=== PATIENT | female | born 1985 | race Caucasian/White ===

== ENCOUNTER 2017-01-10 18:09 | Emergency (ER) | payer SELFPAY ==
[~2017-01-10] VITALS: Ht 167.6 cm; Wt 70.0 kg
[2017-01-10 18:13] VITALS: BP 98/61
== END 2017-01-10 19:23 | disposition left against medical advice (07) ==
LOC: ER 18:17
DX: Z53.21 Procedure and treatment not carried out due to patient leaving prior to being seen by health care provider (principal)

== ENCOUNTER 2017-05-02 03:39 | Emergency (ER) | payer SELFPAY | END 2017-05-02 03:48 | disposition left against medical advice (07) | LOC: ER 03:43 | DX: Z53.21 Procedure and treatment not carried out due to patient leaving prior to being seen by health care provider (principal) ==

== ENCOUNTER 2017-10-31 12:48 | Emergency (ER) | payer MEDICAID ==
[~2017-10-31] VITALS: Ht 165.1 cm; Wt 75.0 kg
[2017-10-31 13:28] LABS: BASOPHILS % 0.6 % (0.0-2.0); EOSINOPHILS % 0.8 % (0.0-5.0); HEMATOCRIT. 33.6 % (36.0-48.0); HEMOGLOBIN. 11.8 g/dL (12.0-16.0); LYMPHOCYTES % 21.5 % (20.0-50.0); MONOCYTES % 4.8 % (2.0-8.0); NEUTROPHILS % 72.3 % (40.0-76.0); PLATELET 256 x1000/uL (130-400); RED BLOOD CELL COUNT 3.81 mill/uL (4.2-5.4); RED CELL DISTRIBUTION WIDTH 14.1 % (11.6-14.6)
[2017-10-31 13:35] LABS: CHLORIDE 108 mEq/L (98-107)
[2017-10-31 13:45] LABS: B-HCG QUANTITATIVE 949 mIU/mL (<3)
[2017-10-31 16:38] VITALS: BP 99/59
== END 2017-10-31 17:05 | disposition home or self-care (01) ==
LOC: ER 13:12
DX: O20.0 Threatened abortion (principal); I10 Essential (primary) hypertension; Z3A.15 15 weeks gestation of pregnancy; Z59.0 Homelessness
CPT/HCPCS: 36415; 76805; 80053; 84702; 85025; 86850; 86900; 99285

== ENCOUNTER 2017-11-01 07:38 | Emergency (ER) | payer MEDICAID ==
[~2017-11-01] VITALS: Ht 157.5 cm; Wt 65.0 kg
[2017-11-01] MEDS ORDERED: SODIUM CHLORIDE 0.9% 1,000 ML IV ONE (08:00)
[2017-11-01] MEDS ORDERED: ONDANSETRON HCL 4MG/2ML VIAL IV ONE (08:00)
[2017-11-01] MEDS ORDERED: MORPHINE SULFATE 4 MG/ML CPJ (NOT FOR IM USE) IV ONE (08:00)
[2017-11-01 08:27] LABS: CHLORIDE 108 mEq/L (98-107)
[2017-11-01 08:29] LABS: PARTIAL THROMBOPLASTIN TIME 26.9 sec (23.4-31.0); PROTHROMBIN TIME 10.2 sec (9.4-11.6)
[2017-11-01 08:31] LABS: BASOPHILS % 0.2 % (0.0-2.0); EOSINOPHILS % 1.2 % (0.0-5.0); HEMATOCRIT. 36.2 % (36.0-48.0); HEMOGLOBIN. 12.3 g/dL (12.0-16.0); LYMPHOCYTES % 17.8 % (20.0-50.0); MEAN CORPUSCULAR HEMOGLOBIN 30.4 pg (28.0-32.0); MEAN CORPUSCULAR VOLUME 89.5 fL (81.0-99.0); MEAN PLATELET VOLUME 8.1 fl (7.4-10.4); MONOCYTES % 3.2 % (2.0-8.0); NEUTROPHILS % 77.6 % (40.0-76.0); PLATELET 275 x1000/uL (130-400); RED BLOOD CELL COUNT 4.05 mill/uL (4.2-5.4); RED CELL DISTRIBUTION WIDTH 14.2 % (11.6-14.6)
[2017-11-01 08:38] LABS: B-HCG QUANTITATIVE 770 mIU/mL (<3)
[2017-11-01] MEDS ORDERED: MEDROXYPROGESTERONE ACETATE 150MG/ML VIAL IM SCH (09:15)
[2017-11-01] MEDS ORDERED: MISOPROSTOL 200MCG TABLET PO ONE (09:15)
[2017-11-01 11:34] VITALS: BP 103/91
== END 2017-11-01 12:05 | disposition home or self-care (01) ==
LOC: ER 07:52
DX: O03.9 Complete or unspecified spontaneous abortion without complication (principal); O99.332 Smoking (tobacco) complicating pregnancy, second trimester; Z3A.15 15 weeks gestation of pregnancy
CPT/HCPCS: 36415; 80053; 84702; 85025; 85610; 85730; 86850; 86900; 86901; 88305; 96361; 96372; 96374; 96375; 99285; J1050; J2270; J2405; J7030; Z7610

== ENCOUNTER 2018-09-30 11:59 | Emergency (ER) | payer SELFPAY ==
[~2018-09-30] VITALS: Ht 162.6 cm; Wt 60.0 kg
[2018-09-30] MEDS ORDERED: NALOXONE HCL 1 MG/ML 2ML VIAL ONE (12:31)
[2018-09-30 12:34] LABS: CHLORIDE 106 mEq/L (98-107)
[2018-09-30 12:36] LABS: BASOPHILS % 0.2 % (0.0-2.0); HEMATOCRIT. 39.6 % (36.0-48.0); HEMOGLOBIN. 13.5 g/dL (12.0-16.0); MEAN CORPUSCULAR HEMOGLOBIN 30.4 pg (28.0-32.0); MEAN CORPUSCULAR VOLUME 89.1 fL (81.0-99.0); MEAN PLATELET VOLUME 8.7 fl (7.4-10.4); MONOCYTES % 4.5 % (2.0-8.0); NEUTROPHILS % 83.3 % (40.0-76.0); PLATELET 255 x1000/uL (130-400); RED BLOOD CELL COUNT 4.44 mill/uL (4.2-5.4); RED CELL DISTRIBUTION WIDTH 13.8 % (11.6-14.6)
[2018-09-30 12:38] LABS: ETHANOL BLOOD < 10 mg/dL
[2018-09-30] MEDS ORDERED: NALOXONE HCL 1 MG/ML 2ML VIAL IV ONE (12:45)
[2018-09-30 13:05] LABS: HCG SCREEN NEGATIVE
[2018-09-30 13:21] LABS: CLARITY URINE CLOUDY (CLEAR); COLOR URINE YELLOW (YELLOW); KETONES URINE NEGATIVE (NEGATIVE); LEUKOCYTE ESTERASE URINE NEGATIVE (NEGATIVE); NITRITE URINE POSITIVE (NEGATIVE); OCCULT BLOOD URINE NEGATIVE (NEGATIVE); PH URINE 5.5 (4.5-8.0); PROTEIN URINE 2+ (NEGATIVE); SPECIFIC GRAVITY URINE 1.029 (1.005-1.030); UROBILINOGEN URINE 0.2 E.U./dL (0.2-1.0)
[2018-09-30] MEDS ORDERED: ONDANSETRON HCL 4MG/2ML INJ IV ONE (13:45)
[2018-09-30 13:50] LABS: *BARBITURATES SCREEN URINE NEGATIVE (NEGATIVE); *BENZODIAZEPINES SCREEN URINE NEGATIVE (NEGATIVE); *COCAINE SCREEN URINE NEGATIVE (NEGATIVE)
[2018-09-30 13:51] LABS: CANNABINOID URINE SCREEN NEGATIVE (NEGATIVE); METHADONE URINE SCREEN NEGATIVE (NEGATIVE)
[2018-09-30 13:52] LABS: *AMPHETAMINES SCREEN URINE PRESUMTIVE POSITIVE (NEGATIVE); OPIATES URINE SCREEN PRESUMTIVE POSITIVE (NEGATIVE); PHENCYCLIDINE URINE SCREEN PRESUMTIVE POSITIVE (NEGATIVE)
[2018-10-01 13:49] VITALS: BP 105/63
== END 2018-10-01 14:09 | disposition home or self-care (01) ==
LOC: ER 12:34
DX: T40.4X2A Poisoning by other synthetic narcotics, intentional self-harm, initial encounter (principal); R40.0 Somnolence; F15.10 Other stimulant abuse, uncomplicated; F16.10 Hallucinogen abuse, uncomplicated; I10 Essential (primary) hypertension; Y92.89 Other specified places as the place of occurrence of the external cause; Z59.0 Homelessness
CPT/HCPCS: 36415; 80053; 80305; 80307; 80320; 80329; 81003; 81025; 84703; 85025; 93005; 96374; 96375; 99284; J2310; J2405; G0480

== ENCOUNTER 2019-02-05 19:57 | Emergency (ER) | payer SELFPAY ==
[~2019-02-05] VITALS: Ht 167.6 cm; Wt 69.0 kg
[2019-02-05 20:19] VITALS: BP 108/65
== END 2019-02-05 23:00 | disposition left against medical advice (07) ==
LOC: ER 22:40
DX: R10.9 Unspecified abdominal pain (principal); Z53.21 Procedure and treatment not carried out due to patient leaving prior to being seen by health care provider

== ENCOUNTER 2019-05-14 20:06 | Observation (INO) | payer SELFPAY ==
[~2019-05-14] VITALS: Ht 160 cm; Wt 59.0 kg
== END 2019-05-14 22:25 | disposition home or self-care (01) ==
LOC: 8 EST LDRP 20:06
PROVIDERS: ADMIT Obstetrics & Gynecology; ATTEND Obstetrics & Gynecology
DX: O62.9 Abnormality of forces of labor, unspecified (principal); O36.8120 Decreased fetal movements, second trimester, not applicable or unspecified; O42.912 Preterm premature rupture of membranes, unspecified as to length of time between rupture and onset of labor, second trimester; Z3A.27 27 weeks gestation of pregnancy
CPT/HCPCS: 76805; 76818; 99281; G0378

== ENCOUNTER 2019-07-10 01:17 | Observation (INO) | payer MEDICAID ==
[~2019-07-10] VITALS: Ht 160 cm; Wt 90.7 kg
[2019-07-10] MEDS ORDERED: ACETAMINOPHEN 325MG TABLET PO NR (02:15)
[2019-07-10 02:39] LABS: CLARITY URINE CLEAR (CLEAR); COLOR URINE YELLOW (YELLOW); KETONES URINE NEGATIVE (NEGATIVE); LEUKOCYTE ESTERASE URINE 1+ (NEGATIVE); NITRITE URINE POSITIVE (NEGATIVE); OCCULT BLOOD URINE NEGATIVE (NEGATIVE); PH URINE 6.5 (4.5-8.0); PROTEIN URINE NEGATIVE (NEGATIVE); SPECIFIC GRAVITY URINE 1.008 (1.005-1.030); UROBILINOGEN URINE 0.2 E.U./dL (0.2-1.0)
== END 2019-07-10 03:30 | disposition home or self-care (01) ==
LOC: 8 EST LDRP 01:17
PROVIDERS: ADMIT Obstetrics & Gynecology; ATTEND Obstetrics & Gynecology
DX: O26.893 Other specified pregnancy related conditions, third trimester (principal); M54.5 Low back pain; Z3A.35 35 weeks gestation of pregnancy
CPT/HCPCS: 81003; 99281; G0378

== ENCOUNTER 2019-07-28 16:02 | Inpatient (IN) | payer MEDICAID ==
[~2019-07-28] VITALS: Ht 160 cm; Wt 82.6 kg
[2019-07-28] MEDS: LACTATED RINGERS 500ML 500 ML IV SCH (18:30)
[2019-07-28] MEDS ORDERED: LACTATED RINGERS 500ML 500 ML IV SCH (20:43)
[2019-07-28] MEDS ORDERED: DEXT 5%/LR + PITOCIN 20UNITS/L 1,000 ML IV SCH (20:43)
[2019-07-28] MEDS ORDERED: CARBOPROST TROMETHAMINE 250 MCG/ML AMPUL IM PRN (20:45)
[2019-07-28] MEDS ORDERED: MISOPROSTOL 100MCG TABLET VG SCH (20:45)
[2019-07-28] MEDS ORDERED: METHYLERGONOVINE MALEATE 0.2 MG/ML IM PRN (20:45)
[2019-07-28] MEDS ORDERED: NALOXONE HCL 0.4 MG/ML 1ML VIAL IM PRN (20:45)
[2019-07-28] MEDS ORDERED: CITRIC ACID/SODIUM CITRATE SOLN 30ML UDC PO SCH (23:15)
[2019-07-28 23:24] LABS: CLARITY URINE CLEAR (CLEAR); COLOR URINE YELLOW (YELLOW); KETONES URINE NEGATIVE (NEGATIVE); LEUKOCYTE ESTERASE URINE NEGATIVE (NEGATIVE); NITRITE URINE NEGATIVE (NEGATIVE); OCCULT BLOOD URINE NEGATIVE (NEGATIVE); PROTEIN URINE NEGATIVE (NEGATIVE); SPECIFIC GRAVITY URINE 1.002 (1.005-1.030); UROBILINOGEN URINE 0.2 E.U./dL (0.2-1.0)
[2019-07-28 23:31] LABS: INR 0.9; PARTIAL THROMBOPLASTIN TIME 28.3 sec (23.4-31.0); PROTHROMBIN TIME 9.4 sec (9.6-11.0)
[2019-07-28 23:36] LABS: METHADONE URINE SCREEN NEGATIVE (NEGATIVE); OPIATES URINE SCREEN NEGATIVE (NEGATIVE)
[2019-07-28 23:37] LABS: *AMPHETAMINES SCREEN URINE NEGATIVE (NEGATIVE); *BARBITURATES SCREEN URINE NEGATIVE (NEGATIVE); *BENZODIAZEPINES SCREEN URINE NEGATIVE (NEGATIVE); *COCAINE SCREEN URINE NEGATIVE (NEGATIVE); CANNABINOID URINE SCREEN NEGATIVE (NEGATIVE); PHENCYCLIDINE URINE SCREEN NEGATIVE (NEGATIVE)
[2019-07-28 23:40] LABS: BASOPHILS % 0.1 % (0.0-2.0); EOSINOPHILS % 1.6 % (0.0-5.0); HEMATOCRIT. 30.5 % (36.0-48.0); HEMOGLOBIN. 10.4 g/dL (12.0-16.0); LYMPHOCYTES % 24.5 % (20.0-50.0); MEAN CORPUSCULAR HEMOGLOBIN 28.3 pg (28.0-32.0); MEAN CORPUSCULAR VOLUME 82.7 fL (81.0-99.0); MEAN PLATELET VOLUME 9.4 fl (7.4-10.4); MONOCYTES % 5.8 % (2.0-8.0); PLATELET 234 x1000/uL (130-400); RED BLOOD CELL COUNT 3.68 mill/uL (4.2-5.4); RED CELL DISTRIBUTION WIDTH 15.4 % (11.6-14.6)
[2019-07-28 23:47] LABS: CHLORIDE 111 mEq/L (98-107)
[2019-07-29] MEDS ORDERED: CITRIC ACID/SODIUM CITRATE SOLN 30ML UDC PO ONE
[2019-07-29 00:13] LABS: HEPATITIS B SURFACE ANTIGEN NEGATIVE
[2019-07-29] MEDS: LACTATED RINGERS 500ML 500 ML IV SCH (02:01)
[2019-07-29] MEDS ORDERED: FENTANYL CITRATE/PF 50MCG/ML 2ML VIAL ONE (07:00)
[2019-07-29] MEDS ORDERED: PHENYLEPHRINE HCL 10 MG/ML 1ML (IV VIAL) IV ONE (07:01)
[2019-07-29] MEDS ORDERED: MORPHINE SULFATE/PF 1MG/ML 10ML AMP ONE (07:01)
[2019-07-29] MEDS ORDERED: OXYTOCIN 10 UNITS/ML 1ML ONE ×3 (07:01→12:21)
[2019-07-29] MEDS ORDERED: GLYCOPYRROLATE 0.2 MG/ML 2ML VIAL ONE (07:01)
[2019-07-29] MEDS ORDERED: ONDANSETRON HCL 4MG/2ML INJ ONE (07:01)
[2019-07-29] MEDS ORDERED: METOCLOPRAMIDE HCL 10MG/2ML VIAL ONE ×2 (07:01→12:05)
[2019-07-29] MEDS ORDERED: EPHEDRINE SULFATE 50MG/ML VIAL ONE (07:01)
[2019-07-29] MEDS ORDERED: CEFAZOLIN SODIUM 1000MG/VIAL ONE (07:01)
[2019-07-29] MEDS ORDERED: MIDAZOLAM HCL 2 MG/2 ML VIAL ONE ×2 (11:52→11:54)
[2019-07-29] MEDS ORDERED: INFLUENZA VIRUS VACCINE(AFLURIA) 0.5ML SYR IM ONE (12:00)
[2019-07-29] MEDS ORDERED: DIPHENHYDRAMINE 50MG/ML VIAL ONE (12:05)
[2019-07-29] MEDS ORDERED: KETOROLAC 60MG/2ML VIAL IM ONE (12:15)
[2019-07-29] MEDS ORDERED: LANOLIN OINT 7GM TUBE TOP PRN (12:45)
[2019-07-29] MEDS ORDERED: HEMORRHOIDAL SUPP PR PRN (12:45)
[2019-07-29] MEDS ORDERED: BISACODYL 10MG SUPP PR PRN (12:45)
[2019-07-29] MEDS ORDERED: ONDANSETRON HCL 4MG/2ML INJ IV PRN (12:45)
[2019-07-29] MEDS ORDERED: RHO(D) IMMUNE GLOBULIN 300 MCG/SYR IM PRN (12:45)
[2019-07-29] MEDS ORDERED: DIPHENHYDRAMINE 25MG CAPSULE PO PRN (12:45)
[2019-07-29] MEDS: DEXT 5%/LR + PITOCIN 20UNITS/L 1,000 ML IV SCH ×2 (12:57→15:19)
[2019-07-29] MEDS ORDERED: DIPHENHYDRAMINE 50MG/ML VIAL IV PRN (13:15)
[2019-07-29] MEDS ORDERED: DEXT 5%/LACTATED RINGERS 1,000 ML IV SCH (13:15)
[2019-07-29] MEDS ORDERED: NALOXONE HCL 0.4 MG/ML 1ML VIAL IV PRN (13:15)
[2019-07-29 15:00] VITALS: BP 96/62
[2019-07-29 15:30] VITALS: BP 100/66
[2019-07-29 16:00] VITALS: BP 95/66
[2019-07-29] MEDS: KETOROLAC 30MG/ML VIAL IV SCH (18:59)
[2019-07-29 22:00] VITALS: BP 99/62
[2019-07-29] MEDS: SIMETHICONE 80MG TABLET CHEW PO SCH (22:19)
[2019-07-30 00:30] VITALS: BP 101/64
[2019-07-30] MEDS: KETOROLAC 30MG/ML VIAL IV SCH ×2 (00:54→06:25)
[2019-07-30 05:44] VITALS: BP 99/66
[2019-07-30 07:29] LABS: BASOPHILS % 0.3 % (0.0-2.0); EOSINOPHILS % 0.9 % (0.0-5.0); HEMATOCRIT. 25.8 % (36.0-48.0); HEMOGLOBIN. 8.7 g/dL (12.0-16.0); LYMPHOCYTES % 15.5 % (20.0-50.0); MEAN CORPUSCULAR HEMOGLOBIN 27.6 pg (28.0-32.0); MEAN CORPUSCULAR VOLUME 81.9 fL (81.0-99.0); MEAN PLATELET VOLUME 9.2 fl (7.4-10.4); NEUTROPHILS % 79.3 % (40.0-76.0); PLATELET 179 x1000/uL (130-400); RED BLOOD CELL COUNT 3.15 mill/uL (4.2-5.4); RED CELL DISTRIBUTION WIDTH 15.5 % (11.6-14.6)
[2019-07-30 08:45] VITALS: BP 95/58
[2019-07-30] MEDS: FERROUS SULFATE 325MG TABLET PO SCH ×3 (09:32→17:36)
[2019-07-30] MEDS: PRENATAL VIT/FE FUMARATE/FA TABLET PO SCH (09:32)
[2019-07-30] MEDS: SIMETHICONE 80MG TABLET CHEW PO SCH ×3 (09:33→17:36)
[2019-07-30] MEDS: ACETAMINOPHEN WITH CODEINE 300/30MG TABLET PO PRN ×3 (13:36→21:24)
[2019-07-30 16:00] VITALS: BP 99/61
[2019-07-30] MEDS ORDERED: TETANUS, DIPHTHERIA, PERTUSSIS VAC/PF 0.5ML (>7YR OLD) IM ONE (18:00)
[2019-07-30 20:30] VITALS: BP 117/79
[2019-07-31] MEDS: ACETAMINOPHEN WITH CODEINE 300/30MG TABLET PO PRN ×4 (01:16→20:36)
[2019-07-31 05:30] VITALS: BP 106/74
[2019-07-31] MEDS: PRENATAL VIT/FE FUMARATE/FA TABLET PO SCH (07:54)
[2019-07-31] MEDS: FERROUS SULFATE 325MG TABLET PO SCH ×3 (07:54→16:44)
[2019-07-31] MEDS: SIMETHICONE 80MG TABLET CHEW PO SCH ×3 (07:55→20:35)
[2019-07-31 08:22] VITALS: BP 111/70
[2019-07-31] MEDS: IBUPROFEN 400MG TABLET PO PRN (11:00)
[2019-07-31 16:01] VITALS: BP 124/83
[2019-07-31 19:05] VITALS: BP 126/78
[2019-07-31] MEDS: HYDROCODONE/ACETAMINOPHEN 5/325MG TABLET PO PRN (23:25)
[2019-07-31 23:30] VITALS: BP 127/81
[2019-08-01] MEDS: IBUPROFEN 400MG TABLET PO PRN (03:18)
[2019-08-01 04:00] VITALS: BP 144/99
[2019-08-01] MEDS: HYDROCODONE/ACETAMINOPHEN 5/325MG TABLET PO PRN (06:17)
[2019-08-01 07:32] VITALS: BP 118/75
[2019-08-01] MEDS ORDERED: FERR325T6 MT (07:36)
[2019-08-01] MEDS ORDERED: IBUP-2030 MT (07:36)
[2019-08-01] MEDS ORDERED: MULT1TAB67 MT (07:36)
[2019-08-01] MEDS: SIMETHICONE 80MG TABLET CHEW PO SCH (08:30)
[2019-08-01] MEDS: FERROUS SULFATE 325MG TABLET PO SCH (08:31)
[2019-08-01] MEDS: PRENATAL VIT/FE FUMARATE/FA TABLET PO SCH (08:31)
== END 2019-08-01 11:40 | disposition home or self-care (01) | DRG 540 ==
LOC: OBSVTOIN 16:02 → 8 EST LDRP 16:02 → 8EST 07-29 14:50
PROVIDERS: ADMIT Obstetrics & Gynecology; ATTEND Obstetrics & Gynecology
PROC: 10D00Z1 Extraction of Products of Conception, Low, Open Approach (ICD-10-PCS; principal; 2019-07-31)
DX: O41.03X0 Oligohydramnios, third trimester, not applicable or unspecified (principal); D64.9 Anemia, unspecified; O34.211 Maternal care for low transverse scar from previous cesarean delivery; Z37.0 Single live birth; Z3A.38 38 weeks gestation of pregnancy; O99.03 Anemia complicating the puerperium
CPT/HCPCS: 36415; 71046; 76815; 76818; 80053; 80305; 81003; 85025; 86592; 86703; 86762; 86850; 86900; 86920; 87340; 88307; 90686; 90715; 99281; G0378; J0690; J1200; J1885; J2250; J2274; J2370; J2405; J2590; J2765; J3010; J3490; J7120; J7121; Q0163; A4315

== ENCOUNTER 2022-12-22 12:02 | Emergency (ER) | payer MEDICAID ==
[~2022-12-22] VITALS: Ht 167.6 cm; Wt 73.0 kg
[~2022-12-22 12:02] MED LIST: FERR325T6 MT; IBUP-2030 MT; MULT-622 MT
[2022-12-22 12:03] VITALS: BP 121/73
== END 2022-12-22 17:33 | disposition left against medical advice (07) ==
LOC: ER 12:02
DX: Z53.21 Procedure and treatment not carried out due to patient leaving prior to being seen by health care provider (principal)
CPT/HCPCS: 99281

== ENCOUNTER 2022-12-30 17:20 | Emergency (ER) | payer MEDICAID ==
[~2022-12-30] VITALS: Ht 162.6 cm; Wt 63.0 kg
[2022-12-30 17:22] VITALS: BP 117/70
[2022-12-30] MEDS ORDERED: ONDANSETRON 4MG ODT PO STA (18:33)
[2022-12-30] MEDS ORDERED: ACETAMINOPHEN 325MG TABLET PO STA (18:33)
[2022-12-30 19:15] LABS: CLARITY URINE CLOUDY (CLEAR); COLOR URINE YELLOW (YELLOW); KETONES URINE NEGATIVE (NEGATIVE); LEUKOCYTE ESTERASE URINE 3+ (NEGATIVE); NITRITE URINE NEGATIVE (NEGATIVE); OCCULT BLOOD URINE TRACE (NEGATIVE); PH URINE 6.5 (4.5-8.0); PROTEIN URINE TRACE (NEGATIVE); SPECIFIC GRAVITY URINE 1.027 (1.005-1.030)
== END 2022-12-30 19:45 | disposition left against medical advice (07) ==
LOC: ER 17:20
DX: R11.0 Nausea (principal); F12.10 Cannabis abuse, uncomplicated
CPT/HCPCS: 81003; 81025; 99283; Q0162

== ENCOUNTER 2023-05-08 10:15 | Emergency (ER) | payer MEDICAID ==
[~2023-05-08] VITALS: Ht 165.1 cm; Wt 64.0 kg
[2023-05-08 10:17] VITALS: BP 126/84; PULSE 92; RESP 16; TEMP 98.4; O2SAT 99
== END 2023-05-08 10:39 | disposition left against medical advice (07) ==
LOC: ER 10:38
DX: R53.1 Weakness (principal)
CPT/HCPCS: 99283